=== PATIENT | male | born 1995 | race Caucasian/White ===

== ENCOUNTER → 2018-09-17 | Outpatient (CLI) | payer SELFPAY | LOC: M OUTALCOH 08:16 | PROVIDERS: ATTEND Psychiatry & Neurology Psychiatry | DX: F10.10 Alcohol abuse, uncomplicated (principal) ==

== ENCOUNTER 2018-10-06 14:54 | Outpatient (RCR) | payer SELFPAY | END 2018-10-11 | LOC: M OUTALCOH 14:54 | PROVIDERS: ATTEND Psychiatry & Neurology Psychiatry | DX: F10.10 Alcohol abuse, uncomplicated (principal) ==

== ENCOUNTER 2018-11-10 15:00 | Outpatient (RCR) | payer SELFPAY | END 2018-11-11 | LOC: M OUTALCOH 15:00 | PROVIDERS: ATTEND Psychiatry & Neurology Psychiatry | DX: F10.10 Alcohol abuse, uncomplicated (principal) ==

== ENCOUNTER 2018-12-11 08:00 | Outpatient (RCR) | payer SELFPAY | END 2018-12-12 | LOC: M OUTALCOH 08:00 | PROVIDERS: ATTEND Psychiatry & Neurology Psychiatry | DX: F10.10 Alcohol abuse, uncomplicated (principal) ==

== ENCOUNTER → 2019-01-11 | Outpatient (RCR) | payer SELFPAY | LOC: M OUTALCOH 12-18 08:05 | PROVIDERS: ATTEND Psychiatry & Neurology Psychiatry | DX: F10.10 Alcohol abuse, uncomplicated (principal) ==

== ENCOUNTER → 2019-01-29 | Outpatient (CLI) | payer SELFPAY | LOC: M LAB 19:19 | PROVIDERS: ATTEND Psychiatry & Neurology Addiction Medicine | DX: F10.99 Alcohol use, unspecified with unspecified alcohol-induced disorder (principal) ==

== ENCOUNTER 2019-02-08 16:00 | Outpatient (RCR) | payer SELFPAY | END 2019-02-11 | LOC: M OUTALCOH 16:00 | PROVIDERS: ATTEND Psychiatry & Neurology Psychiatry | DX: F10.10 Alcohol abuse, uncomplicated (principal) ==

== ENCOUNTER 2019-02-17 08:00 | Outpatient (RCR) | payer SELFPAY | END 2019-03-13 | LOC: M OUTALCOH 08:00 | PROVIDERS: ATTEND Psychiatry & Neurology Psychiatry | DX: F10.10 Alcohol abuse, uncomplicated (principal) ==

== ENCOUNTER → 2024-12-31 | Outpatient (REF) | payer BC ==
[2024-12-31 16:04] LABS: Trichomonas vaginalis (AMP) NOT DETECTED (NEGATIVE)
[2024-12-31 16:28] LABS: GC DNA AMPLIFICATION NEGATIVE (NEGATIVE)
== END ==
LOC: M LAB REF 14:46
PROVIDERS: ATTEND Student in an Organized Health Care Education/Training Program
DX: R30.0 Dysuria (principal)